=== PATIENT | male | born 1960 | race Caucasian/White ===

== ENCOUNTER 2024-11-11 08:29 | Outpatient (OUT) | payer OTHER, SELFPAY ==
--- NOTE | 2024-11-11 | CT_ITS ---
The [address] [address] Patient Name: MILTON MCARTHUR MRN: [id number] date: 1960 Sex: M Assigned Patient Location: CT Current Patient Location: Accession/Order Number: [id number] Exam Date: 11/11/2024 08:35 Report Date: 11/13/2024 05:39 At the request of: GAGE BERGMAN Procedure: CT head/brain wo con EXAM: CT head/brain wo con HISTORY: Syncope and collapse. CM R55. INDICATION: 64 years old; Male. TECHNIQUE: CT Head (ax/cor/sag reformats). Ionizing radiation dose reduced via iterative reconstruction/FBP blend and body size kV/mA adjustment. Comparison: None FINDINGS: POSTOPERATIVE CHANGES: None. BRAIN PARENCHYMA: No intraparenchymal or extra-axial hemorrhage. No mass effect. No midline shift or herniation. Patchy low-density in the white matter without mass effect. VENTRICLES/EXTRA-AXIAL SPACES: Enlarged, consistent with atrophy. SINUSES/MASTOIDS: The visualized sinuses are clear although the study does not completely include the paranasal sinuses. Mastoids and middle ears are clear. MSK: No displaced or depressed calvarial fracture. OTHER: No hyperdense intraluminal thrombus. There is calcification the anterior and posterior circulation. CT/CT head/brain wo con IMPRESSION: 1. No acute intracranial abnormality. No hemorrhage or mass effect. 2. Nonspecific white matter changes. 3. Atrophy. 4. Vascular calcification. If there is continued suspicion for intracranial pathology, then MRI including diffusion imaging would be more sensitive for further evaluation. Electronically authenticated by: ALESSANDRO MIKE Date: 11/13/2024 05:39
== END 2024-11-11 08:30 | disposition home or self-care (01) ==
LOC: CT 08:29
DX: R55 Syncope and collapse (principal)
CPT/HCPCS: 70450

== ENCOUNTER 2024-12-01 08:34 | Outpatient (OUT) | payer OTHER, SELFPAY ==
--- NOTE | 2024-12-01 | MR_ITS ---
The [address] [address] Patient Name: MILTON MCARTHUR MRN: [id number] date: 1960 Sex: M Assigned Patient Location: MRI Current Patient Location: MRI Accession/Order Number: [id number] Exam Date: 12/01/2024 09:20 Report Date: 12/01/2024 14:12 At the request of: AGGE BERGMAN Procedure: MR head/brain wo/w con MRI BRAIN WITH AND WITHOUT CONTRAST, 12/01/2024. HISTORY: Chronic syncope. COMPARISON: None. TECHNIQUE: Multiplanar, multisequence MRI imaging of the brain with and without contrast. FINDINGS: Paranasal sinuses are clear. There is some fluid in the mastoid air cells on the left. Nasopharynx normal. Orbital contents unremarkable. Extracranial soft tissue structures are unremarkable. Moderate brain atrophy. No hydrocephalus. No subdural fluid collection. No mass effect. No shift of midline. Moderate chronic microvascular ischemic changes in the cerebral white matter. No diffusion restriction. No acute ischemic infarction. No hemorrhagic lesion. No pathologically enhancement of the brain. No brain mass. MR/MR head/brain wo/w con IMPRESSION: 1. No acute infarction. 2. Moderate brain atrophy and chronic microvascular changes. 3. No pathologic enhancement. No intracranial mass. Electronically authenticated by: BRE DE LEON Date: 12/01/2024 14:12
== END 2024-12-01 08:35 | disposition home or self-care (01) ==
DX: R55 Syncope and collapse (principal)
CPT/HCPCS: 70553; A9575

== ENCOUNTER 2025-01-29 12:13 | Outpatient (OUT) | payer OTHER, SELFPAY ==
[2025-01-29 12:28] LABS: Basophils Absolute Auto 0.1 10^3/uL (0.0-0.1); Basophils Percent Auto 0.5 % (0.2-2.0); Eosinophils Absolute Auto 0.2 10^3/uL (0.0-0.7); Eosinophils Percent Auto 1.3 % (0.9-7.0); Hematocrit 40.6 % (42.0-54.0); Hemoglobin 14.4 g/dL (14.0-18.0); Immature Granulocytes Abs Auto 0.04 10^3/uL (0.00-0.03); Immature Granulocytes Pct Auto 0.3 % (0.0-0.5); Lymphocytes Percent Auto 17.2 % (20.5-60.0); Mean Corpuscular HGB Conc 35.5 g/dL (29.9-35.2); Mean Corpuscular Hemoglobin 34.1 pg (25.9-34.0); Mean Corpuscular Volume 96.2 fL (80.0-94.0); Mean Platelet Volume 9.1 fL (9.5-13.5); Monocytes Absolute Auto 0.8 10^3/uL (0.3-0.8); Monocytes Percent Auto 7.3 % (1.7-12.0); Neutrophils Absolute Auto 8.4 10^3/uL (1.4-6.5); Neutrophils Percent Auto 73.4 % (43.0-75.0); Platelet Count 218 10^3/uL (150-450); Red Blood Count 4.22 10^6/uL (4.70-6.10); Red Cell Distribution Width 12.2 % (11.0-15.0); White Blood Count 11.4 10^3/uL (4.0-11.0)
--- OUTSIDE RECORDS SUMMARY | 2025-01-29 12:31 | XMS_ITS | CCD ---
Author Organization [facility] Care Team Providers Care Occupational Health And Safety Adviser Name Role Phone Unallocated , Laurent Provider Primary Care Provi jayesh Gage Bueno NP Unavailable [phone] Attending Unavailable GAGE BUENO Referring Unavailable Medications Current Medications Medication Drug Class(es) Dates Sig (Normalized) Sig (Original) valsartan 80 mg oral tablet (2 sources) Angiotensin 2 Receptor Darleen take 1 tablet by mouth once daily valsartan (Diovan) 80 MG tablet Take 80 mg by mouth Daily Active Problems Problem Classification Problem Date Documented Da te Episodic/Chronic Alcohol-related disorders (2 sources) Alcohol abuse; Translations: [Alcohol abuse, uncomplicated] 01-11-2025 Chronic Cardiac dysrhythmias (2 sources) Bradycardia; Translations: [Bradycardia, unspecified] 01-11-2025 Episodic Syncope (6 sources) Syncope and collapse; Translations: [Syncope and collapse] 01-11-2025 Episodic Vital Signs Date Time Vital Sign Value Performing Clinician Katya nelson 01-11-2025 09:48-0500 Body weight 99.79 kg Channing Berry Go800 Work Phone: [facility] 01-11-2025 09:48-0500 Diastolic blood pressure 82 mm[Hg] Channing Berry Go800 Work Phone: [facility] 01-11-2025 09:48-0500 Heart rate 81 /min Channing Berry Go800 Work Phone: [facility] 01-11-2025 09:48-0500 SaO2% (BldA) [Mass fraction] 97 % Channing Berry Go800 Work Phone: [facility] 01-11-2025 09:48-0500 Systolic blood pressure 140 mm[Hg] Channing Berry DO Work Phone: [facility] Encounters Encounter Date Encounter Type Care Provider Facility Start: 01-11-2025 End: 01-11-2025 Bamboo flowsheet Channing Berry DO Work Phone: [facility] Start: 01-11-2025 End: 01-11-2025 Bamboo flowsheet Channing Berry DO Work Phone: [facility] Start: 01-11-2025 End: 01-11-2025 Office outpatient new 45 minutes Channing Berry DO Work Phone: [facility] Comment on above: Syncope and collapse (Primary Dx); Alcohol abuse; Bradycardia Start: 01-11-2025 End: 01-11-2025 ambulatory CHANNING BERRY Not Available Plan of Treatment Date Care Activity Detail Author Start: 02-14-2025 End: 02-14-2025 Patient encounter procedure 02/14/2025 8:20 AM EDT Office Visit [facility] [address] [place] [address] Herlinda Salas PA [address] [place] [id number] [facility] Start: 01-17-2025 End: 01-17-2025 Professional / ancillary services management 01/17/2025 9:00 AM EDT Ancillary Procedure [facility] [address] [place] [address] [facility] Start: 01-11-2025 End: 01-11-2026 EEG, Including Recording Awake or Asleep EEG, Including Recording Awake or Asleep Neurology Routine Syncope and collapse Expected: 01/11/2025 (Approximate), Expires: 01/11/2026 [facility] Work Phone: Comment on above: Expected: 01/11/2025 (Approximate), Expires: 01/11/2026 Start: 01-11-2025 End: 01-11-2025 Patient encounter procedure 01/11/2025 10:00 AM EST Office Visit [facility] [address] [place] [phone] Channing Berry DO [address] [place] [address] Arrived [facility] Comment on above: Arrived Start: 1960 Screening for malign ant neoplasm of colon [facility] Healthcare Payers Date Payer Category Payer Private Health Insurance [employer] [id number] 2024 Unknown [id number] 1960 Unknown [id number] Social History Date Type Detail Facility Tobacco smoking stat [facility] Tobacco smoking consumption unknown [facility] Healthcare Start: 1960 Sex assigned at Not on file [facility] Healthcare Gender identity Not on file [facility] Healthc are History of Present illness Narrative 01-11-2025 Channing Berry DO - 01/11/2025 10:00 AM EST Note Date & Type Note Facility 01-11-2025 History of Presen t illness Narrative Images from the original note were not included. Chief Complaint: syncope Subjective Jonathan Davis Valerie, 64 y.o., male Patient presents today for a neurologic consult at the request of Gage Bueno CNP for syncope and collapse. Patient states he has been experiencing episodes for about 20 years. He is having this about one time a year. At times he can feel this coming on other times he can not. He will get lightheaded and tries to either sit or lay down. He is still driving and he states if he is driving he will try and get on a back road. He admits LOC during every episode. He states his heart does stop during these episodes and will start back up on its own. After these events he is very fatigued for a period of time after. The last event happened about one month ago. He has not seen a brewery pumper in [place] yet he states he has an appointment with them on 01/29, Review of Systems Constitutional: Negative for appetite change, fatigue and fever. Respiratory: Negative for cough, shortness of breath and wheezing. Cardiovascular: Negative for chest pain, palpitations and leg swelling. Gastrointestinal: Negative for abdominal pain, constipation, diarrhea and nausea. Musculoskeletal: Negative for arthralgias, gait problem and myalgias. Neurological: Positive for syncope. Negative for dizziness, tremors, numbness and headaches. No past medical history on file. No past surgical history on file. No family history on file. Social History Tobacco Use Smoking status: Not on file Smokeless tobacco: Not on file Substance Use Topics Alcohol use: Not on file Allergies: Patient has no known allergies. Vitals: 01/11/25 0948 BP: 140/82 Pulse: 81 SpO2: 97% There is no height or weight on file to calculate BMI. weight: 220 lb Neurologic exam: Mental status: Awake, alert to person, place and time. Recent and remote memory are intact. Language is fluent without aphasia. Attention and concentration are normal. Fund of knowledge is appropriate for level of education. Cranial nerves: CN II: Visual acuity is normal. Visual baez full to confrontation. CN III, IV, : pupils equal round and reactive to light. Extraocular movements intact. No ptosis present. CN V: Facial sensation is normal. CN VII: Full and symmetric facial movement. CN VIII: Hearing is normal to finger rub bilaterally: CN IX and X: Palate elevates symmetrically. CN XI: Shoulder shrug is normal bilaterally. CN XII: Tongue is midline without atrophy or fasciculation. Motor: RUE Strength deltoid, , biceps , triceps , wrist extensors , wrist flexor , employee relations director strength 5/5. LUE Strength deltoid , biceps , triceps , wrist extensors , wrist flexor , employee relations director strength 5/5. RLE Strength illopsoas, quadriceps, tibialis anterior, and gastrocnemius strength 5/5. LLE Strength illopsoas, quadriceps, tibialis anterior, and gastrocnemius strength 5/5. Normal tone x4 extremities. Bulk is normal. Sensory: Sensation is intact to light touch throughout Four extremities. Reflexes: RUE biceps reflex 2+ brachioradialis reflex 2+ . LUE biceps reflex 2+ brachioradialis reflex 2+ . RLE knee reflex 2+ . LLE knee reflex 2+ . James's sign negative. Coordination: [id number] testing and rapid alternating movements are normal Gait: Normal Review and summary of old records: MRI of the brain with and without contrast on 12/01/2024: No acute infarction. Moderate brain atrophy and chronic microvascular changes. No pathologic enhancement. No evidence of mass. CT of the brain without contrast on 11/13/2024: No acute intracranial abnormality. No hemorrhage or mass. Nonspecific white matter changes. Atrophy. I have reviewed Cardiology consultation from [facility] on 05/25/2019 with the patient was seen from similar episodes of sudden loss of consciousness. Seems that they happened without warning. He was noted to have a history of alcoholism and recreational marijuana use. He had seen an medical assistant supervisor who recommended undergoing pacemaker implantation for bradycardia and apparently he did not have the unit placed at this time. He also continued to drink despite the recommendations not to. Assessment/Plan Diagnoses and all orders for this visit: Syncope and collapse Alcohol abuse Bradycardia It is my impression that the patient has intermittent episodes of loss of consciousness. This has been longstanding for a great many years. He previously saw Cardiology back in 2019 in [place] who noted his continued alcohol abuse, suggestion of pacemaker implantation for bradycardia and further workup that was ordered at that time. He also had a recent MRI and CT scan of the brain which were unremarkable for acute pathology would explain symptoms. However, atrophy was identified and certainly not surprising with a history of alcohol abuse. I feel that his episodes of loss of consciousness are most likely related to autonomic dysfunction from alcohol abuse or cardiac cause. I am unable to exclude fully a process such as epilepsy but I feel this is unlikely and this is more likely provoked from the patient's alcohol use or cardiac cause. Plan: Routine EEG to assess for any epileptiform abnormalities which may be contributing the patient's symptoms Ambulatory referral to Cardiology in order to further assess his heart condition and any ongoing need for pacemaker implantation or further evaluation. As the patient has had episodes of loss of consciousness. We need to follow precautions as such likely seizure precautions including no driving, tub bathing alone, swimming alone, working from heights or operating heavy machinery. Patient understands these restrictions. Pt has been fully educated on their diagnosis, lab results, treatment options, follow up plan, and return instructions documented in this encounter [facility] Evaluation note Note Date & Type Note Facility Evaluation note Diagnosis Syncope and collapse- Primary Alcohol abuse Nondependent alcohol abuse, unspecified drinking behavior Bradycardia Other specified cardiac dysrhythmias documented in this encounter [facility] Reason for visit Narrative Consultation (Routine) - Closed Note Date & Type Note Facility Reason for visit Narrative Specialty Diagnoses / Procedures Referred By Lucila iverson Referred To Contact Neurology Diagnoses Syncope and collapse Procedures ND OFFICE/OUTPATIENT [facility] MDM 30 MINUTES Gage Bueno NP [address] [place] [address] [place] [phone] Phone: tel: fax: Channing Berry DO [address] [facility] [address] [place] [address] Phone: tel: fax: Referral ID Status Reason Start Date Expiration Date V isits Requested Visits Authorized [id number] Closed Consult and Treat 12/18/2024 07/10/2025 1 1 [facility] Healthcare Summary Purpose Family History No Family History Records Found Advance Directives No Advanced Directives Records Found Additional Source Comments Care Teams (unrecognized sec tion and content) Occupational Health And Safety Adviser Relationship Specialty Start Date End Date Unallocated, Laurent [facility]st [facility] [place] [address] PCP - General Family Medicine 12/21/24 Gage Bueno NP [address] [place] [address] Nurse Practitioner Family Medicine 12/21/24 Occupational Health And Safety Adviser Relationship Specialty Start Date End Date Unallocated, [place] [address] PCP - General Family Medicine 12/21/24 Gage Bueno NP [address] [place] [id number] [place] [address] Nurse Practitioner Family Medicine 12/21/24 (unrecognized sect ion and content) No Status Records Found INFORMATION SOURCE (unrecogn ized section and content) DATE CREATED AUTHOR 01/13/2025 [facility] EPIC FOR RECORDS PERTAINING TO PATIENTS WHO ARE OR HAVE BEEN ENROLLED IN A CHEMICAL DEPENDENCY/SUBSTANCEABUSE PROGRAM, SOME INFORMATION MAY BE OMITTED. This clinical summary was aggregated from multiple sources. Caution should be exercised in using it in the provision of clinical care. This summary normalizes information from multiple sources, and as a consequence, information in this document may materially change the coding, format and clinical context of patient data. In addition, data may be omitted in some cases. CLINICAL DECISIONS SHOULD BE BASED ON THE PRIMARY CLINICAL RECORDS. [employer] provides no warranty or guarantee of the accuracy or completeness of information in this document.
[2025-01-29 13:05] LABS: Alanine Aminotransferase 53 U/L (16-63); Albumin Globulin Ratio 0.9; Albumin Level 3.8 g/dL (3.4-5.0); Alkaline Phosphatase 94 U/L (46-116); Anion Gap 12.9; Aspartate Amino Transferase 49 U/L (15-37); BUN Creatinine Ratio 8.5; Bilirubin Total 0.6 mg/dL (0.2-1.0); Calcium 9.2 mg/dL (8.5-10.1); Carbon Dioxide 27.6 mmol/L (21.0-32.0); Chloride 100 mmol/L (98-107); Estimated GFR (African America >60 (>=60 mL/min/1.73m^2); Estimated GFR (Non-African Ame >60 (>=60 mL/min/1.73m^2); Glucose 110 mg/dL (74-106); Potassium 4.5 mmol/L (3.5-5.1); Sodium 136 mmol/L (136-145); Thyroid Stimulating Hormone 1.375 uIU/mL (0.358-3.740); Total Protein 7.8 g/dL (6.4-8.2)
[2025-01-29 13:24] LABS: Free T4 0.82 ng/dL (0.76-1.46)
== END 2025-01-29 12:14 | disposition home or self-care (01) ==
PROVIDERS: Visit Provider Internal Medicine Interventional Cardiology
DX: R55 Syncope and collapse (principal)
CPT/HCPCS: 36415; 80053; 84439; 84443; 85025

== ENCOUNTER 2025-02-08 08:06 | Outpatient (OUT) | payer OTHER, SELFPAY ==
--- NOTE | 2025-02-08 | PCN_ITS ---
CARDIAC STRESS TEST Requesting Physician: Souleymane Hale M.D. Procedure Date: 02/08/2025 INDICATION FOR THE TEST: Syncope. The procedure was discussed with the patient in detail including risks and benefits, and he was agreeable to proceed. Resting 12-lead EKG showed normal sinus rhythm, heart rate 78 beats per minute, normal EKG. Resting blood pressure 148/90 mm/Hg. The patient was injected with Lexiscan 0.4 mg IV, and he was monitored for a few minutes. Patient did not have any symptoms throughout the test. Heart rate went up to a max of 100 beats per minute, which represents 64% of age predicted maximum heart rate, and a peak blood pressure of 158/90 mm/Hg. EKG throughout the test did not show significant T or ST changes or significant arrhythmias. CONCLUSION: 1. Negative Lexiscan EKG stress test for ischemia. 2. The nuclear images result will be reported separately. [facility]
--- NOTE | 2025-02-08 | NM_ITS ---
Patient Name: MILTON MCARTHUR MR#: [id number] : 1960 Exam Date: 02/08/2025 Ordering Doctor: DR JONY ZAMORA M.D. RADIOLOGY REPORT PROCEDURE: NM RADHA PERF SPECT REST STR COMPARISON: None. INDICATIONS: SYNCOPE AND COLLAPSE TECHNIQUE: Exam Description: Stress/Rest one day protocol gated SPECT Rest Imagin.5 mCi Tc-99m Cardiolite IV on 02/08/2025 Stress Imaging 30.1 mCi Tc-99m Cardiolite IV on 02/08/2025 Exercise Protocol: 0.4 mg Lexiscan given IV Heart Rate (bpm): Rest: 80 Max: 100 PMHR: 64 Blood Pressure: Rest: 148/90 Max: 158/90 Symptoms: Rest and peak stress ECG findings were pending and the exercise portion of the study was pending per attending physician [facility] . For more details please see separate cardiac stress test report. FINDINGS: QUALITY OF STUDY: good PERFUSION DEFECT: LOCATION: Inferior SIZE: Medium SEVERITY: Mild TYPE: Fixed but exhibit adequate thickening and contractility WALL MOTION: LV SIZE: 79 mL. TID / TCD: 0.7 LVEF: Calculated EF 71%. SUMMARY: Normal Myocardial perfusion imaging study CONCLUSION: Normal myocardial perfusion images without ischemia or infarct Normal LV EF 71% No TID, TID 0.7 Negative Lexscan EKG stress test for ischemia Dictated by: Bita Boykin MD on 02/08/2025 at 13:06 Approved by: Bita Boykin MD on 02/08/2025 at 13:10
--- NOTE | 2025-02-08 08:15 | CA_ITS ---
Patient Name: MILTON MCARTHUR MR#: [id number] : 1960 Exam Date: 02/08/2025 Ordering Doctor: DR JONY ZAMORA M.D. ECHOCARDIOGRAM REPORT PROCEDURE: CA ECHO DOPPLER COMPLETE INDICATIONS: Syncope, hypertension COMPARISON: None. DESCRIPTION: COMPLETE ECHOCARDIOGRAM Real-time transthoracic echocardiography with 2D, M-mode, spectral and color flow Doppler performed. QUALITY: Technical quality was good. LEFT VENTRICLE: Normal chamber size. Moderate concentric left ventricular hypertrophy. LV EF: Normal left ventricular systolic function without wall motion abnormalities, ejection fraction 65%, DIASTOLIC: Normal diastolic function. ATRIAL SEPTUM: Appears intact LEFT ATRIUM: Normal chamber size. RIGHT ATRIUM: Normal chamber size. RIGHT VENTRICLE: Normal chamber size. Decreased right ventricular systolic function. TRICUSPID VALVE: Normal mobility and thickness. No stenosis with no regurgitation. MITRAL VALVE: Normal mobility and thickness. No evidence of mitral valve stenosis. There is no mitral annular calcification. No mitral regurgitation. AORTIC VALVE: Normal trileaflet appearance. No visible sclerosis. Normal leaflet mobility. No evidence of aortic valve stenosis. Trivial aortic regurgitation. AORTIC ROOT: Mildly dilated(4.3 cm) PULMONIC VALVE: Normal thickness and mobility. No stenosis. No regurgitation. PERICARDIUM: No evidence of pericardial effusion. IVC: Collapes with inspirations. IVC is normal in size. PLEURA: CONCLUSION: Moderate concentric left ventricle hypertrophy Normal left ventricle systolic function without wall motion abnormalities, ejection fraction 65% Normal left ventricle diastolic function Normal right ventricle size but reduced systolic function No significant valvular abnormalities Dilated aortic root measuring 4.3 cm Adult Echocardiography Procedure Report Left Ventricle LVEDD (3.7 - 5.6 cm): 4.43 cm LVESD (2.2 - 4.0 cm): 2.92 cm LVIVS thickness (0.6 - 1.2 cm): 1.54 cm LVPW thickness (0.5 - 1.0 cm): 1.39 cm e': 0.07 m/s E - e': 11.79 LVOT Max Gradient: 3.18 mm[Hg] LVOT Area (cm2): 0.89 m/s Peak Velocity (LVOT): 0.89 m/s Mean Velocity (LVOT): 0.59 m/s LVOT Diameter 2.26 cm Left Atrium LA Volume Index (2D A2C): 27.22 ml/m2 Left Atrium Systolic Dimension: 3.88 cm Mitral Valve MV E to A Ratio: 0.95 Mitral Valve A-Wave Peak Velocity: 0.91 m/s Mitral Valve E-Wave Peak Velocity: 0.86 m/s Right Ventricle Aorta AO Root Diam: 4.33 cm Aortic Valve AoV Area (Peak Keyshawn): 4.13 cm2, 4.13 cm2 AoV Area (VTI): 4.02 cm2, 4.02 cm2 Peak Velocity(Antegrade Flow): 0.87 m/s Peak Gradient(Antegrade Flow): 3.02 mm[Hg] Mean Velocity(Antegrade Flow): 0.57 m/s Mean Gradient(Antegrade Flow): 1.52 mm[Hg] Velocity Time Integral: 19.55 cm Tricuspid Valve Pulmonic Valve Mean Gradient: 2.74 mm[Hg], 2.72 mm[Hg] Mean Velocity: 0.76 m/s, 0.76 m/s Peak Gradient: 5.49 mm[Hg], 5.49 mm[Hg] Right Atrium Right Atrium Systolic Pressure: 56.71 ml, 56.71 ml Dictated by: Bita Boykin MD on 02/08/2025 at 18:09 Approved by: Bita Boykin MD on 02/08/2025 at 18:15
[2025-02-08] MEDS: REGADENOSON 0.4 MG/5 ML SYRINGE IV (10:40)
--- NOTE | 2025-02-08 10:41 | PC.NURSE ---
Nursing Note Cardiac Stress Test Reviewed: Medication, allergies and patient history reviewed. Stress Test: [ x] Patient tolerated stress test well. [ ] Patient unable to tolerate walking on treadmill. Switched to Lexiscan stress test. [ x] No chest pain noted per patient [ ] Chest pain that resolved prior to leaving stress lab. [ x] No dyspnea noted. [ ] Dyspnea that resolved prior to leaving stress lab. [x ] Patient left stress lab asymptomatic and hemodynamically stable. [ ] Patient taken to the Emergency Room due to non-resolving symptoms following stress test. [ ] Patient achieved target heart rate. [ ] Patient unable to achieve target heart rate. [ ] Aminophylline administered as reversal agent to Lexiscan (Regadenoson). [ ] Nitro administered. Nursing Comments:
== END 2025-02-08 08:07 | disposition home or self-care (01) ==
LOC: NM 08:06
PROVIDERS: Visit Provider Internal Medicine Interventional Cardiology
DX: R55 Syncope and collapse (principal)
CPT/HCPCS: 78452; 93017; 93306; A9500; J2785